=== PATIENT | male | born 1970 | race African-American/Black ===

== ENCOUNTER 2020-03-01 08:13 | Emergency (ER) | payer MEDICAID ==
[~2020-03-01] VITALS: Ht 177.8 cm; Wt 73.0 kg
[2020-03-01] MEDS ORDERED: EMTR1TAB13 PO (08:23)
[2020-03-01] MEDS ORDERED: LIDOCAINE HCL/PF 1% 10 MG/ML 5ML VIAL IJ ONE (08:45)
[2020-03-01] MEDS ORDERED: IBUPROFEN 600MG TABLET PO ONE (08:45)
[2020-03-01] MEDS ORDERED: BACITRACIN ZINC OINT UDPKT TOP ONE (08:45)
[2020-03-01] MEDS ORDERED: LIDOCAINE HCL 1% 20ML VIAL (Pyxis) INJ INFIL ONE (09:15)
[2020-03-01] MEDS ORDERED: CEFTRIAXONE SODIUM 1 G/VIAL IM ONE (09:15)
[2020-03-01 09:45] VITALS: BP 135/62
== END 2020-03-01 09:47 | disposition home or self-care (01) ==
LOC: ER 08:13
DX: L02.01 Cutaneous abscess of face (principal); B20 Human immunodeficiency virus [HIV] disease
CPT/HCPCS: 10060; 90471; 99283; J0696; J3490

== ENCOUNTER 2020-03-15 08:32 | Emergency (ER) | payer MEDICAID ==
[~2020-03-15] VITALS: Ht 177.8 cm; Wt 75.0 kg
[~2020-03-15 08:32] MED LIST: EMTR1TAB13 PO
[2020-03-15 08:34] VITALS: BP 112/69
[2020-03-15] MEDS ORDERED: PENICILLIN G BENZATHINE 2,400,000 UNITS/4ML SYR IM ONE (09:15)
[2020-03-15 10:04] LABS: COLOR URINE YELLOW (YELLOW); KETONES URINE NEGATIVE (NEGATIVE); LEUKOCYTE ESTERASE URINE NEGATIVE (NEGATIVE); NITRITE URINE NEGATIVE (NEGATIVE); OCCULT BLOOD URINE NEGATIVE (NEGATIVE); PROTEIN URINE NEGATIVE (NEGATIVE)
[2020-03-15 10:06] LABS: CLARITY URINE SL HAZY (CLEAR)
== END 2020-03-15 10:11 | disposition home or self-care (01) ==
LOC: ER 08:32
DX: A53.9 Syphilis, unspecified (principal)
CPT/HCPCS: 81003; 86592; 86593; 86780; 96372; 99283; J0561

== ENCOUNTER 2020-04-14 08:03 | Emergency (ER) | payer MEDICAID ==
[~2020-04-14] VITALS: Ht 177.8 cm; Wt 74.8 kg
[2020-04-14] MEDS ORDERED: CEFTRIAXONE SODIUM 250 MG/VIAL IM ONE (08:30)
[2020-04-14] MEDS ORDERED: AZITHROMYCIN 500 MG TABLET PO ONE (08:30)
[2020-04-14 08:42] LABS: CLARITY URINE CLOUDY (CLEAR); COLOR URINE YELLOW (YELLOW); KETONES URINE NEGATIVE (NEGATIVE); LEUKOCYTE ESTERASE URINE NEGATIVE (NEGATIVE); NITRITE URINE NEGATIVE (NEGATIVE); OCCULT BLOOD URINE 1+ (NEGATIVE); PH URINE 5.5 (4.5-8.0); PROTEIN URINE NEGATIVE (NEGATIVE); SPECIFIC GRAVITY URINE 1.023 (1.005-1.030)
[2020-04-14 09:22] VITALS: BP 107/61
== END 2020-04-14 09:33 | disposition home or self-care (01) ==
LOC: ER 08:03
DX: A64 Unspecified sexually transmitted disease (principal)
CPT/HCPCS: 81003; 86592; 86593; 86780; 96372; 99283; J0696

== ENCOUNTER 2021-06-10 08:29 | Emergency (ER) | payer MEDICAID ==
[~2021-06-10] VITALS: Ht 177.8 cm; Wt 75.0 kg
[2021-06-10] MEDS ORDERED: IBUPROFEN 600MG TABLET PO ONE (09:15)
[2021-06-10 09:23] LABS: CLARITY URINE CLEAR (CLEAR); COLOR URINE YELLOW (YELLOW); KETONES URINE NEGATIVE (NEGATIVE); LEUKOCYTE ESTERASE URINE NEGATIVE (NEGATIVE); NITRITE URINE NEGATIVE (NEGATIVE); OCCULT BLOOD URINE TRACE (NEGATIVE); PROTEIN URINE NEGATIVE (NEGATIVE); SPECIFIC GRAVITY URINE 1.021 (1.005-1.030); UROBILINOGEN URINE 0.2 E.U./dL (0.2-1.0)
[2021-06-10] MEDS ORDERED: CEFTRIAXONE SODIUM 500 MG/VIAL IM ONE (09:30)
[2021-06-10] MEDS ORDERED: LIDOCAINE HCL 1% 20ML VIAL (Pyxis) INJ INFIL ONE (09:30)
[2021-06-10] MEDS ORDERED: DOXYCYCLINE HYCLATE 100MG CAPSULE PO ONE (09:30)
[2021-06-10] MEDS ORDERED: DOXY100T2 MT (09:32)
[2021-06-10] MEDS ORDERED: IBUP-2029 MT (09:32)
[2021-06-10 10:10] VITALS: BP 117/73
== END 2021-06-10 10:12 | disposition home or self-care (01) ==
LOC: ER 09:24
DX: N34.2 Other urethritis (principal); R30.0 Dysuria
CPT/HCPCS: 81003; 96372; 99283; J0696; J3490

== ENCOUNTER 2021-11-21 08:07 | Emergency (ER) | payer MEDICAID ==
[~2021-11-21] VITALS: Ht 177.8 cm; Wt 75.0 kg
[~2021-11-21 08:07] MED LIST changes: +DOXY100T2 MT; +IBUP-2029 MT
[2021-11-21 08:15] VITALS: BP 123/69
[2021-11-21 10:34] LABS: CLARITY URINE CLEAR (CLEAR); COLOR URINE YELLOW (YELLOW); KETONES URINE NEGATIVE (NEGATIVE); LEUKOCYTE ESTERASE URINE NEGATIVE (NEGATIVE); NITRITE URINE NEGATIVE (NEGATIVE); OCCULT BLOOD URINE 1+ (NEGATIVE); PH URINE 5.5 (4.5-8.0); PROTEIN URINE NEGATIVE (NEGATIVE); SPECIFIC GRAVITY URINE 1.015 (1.005-1.030); UROBILINOGEN URINE 0.2 E.U./dL (0.2-1.0)
[2021-11-21] MEDS ORDERED: DOXYCYCLINE HYCLATE 100MG CAPSULE PO SCH (10:45)
[2021-11-21] MEDS ORDERED: CEFTRIAXONE SODIUM 500 MG/VIAL IM SCH (10:45)
[2021-11-21] MEDS ORDERED: DOXY100C5 MT (11:11)
[2021-11-21] MEDS ORDERED: IBUP-2029 MT (11:11)
== END 2021-11-21 11:42 | disposition home or self-care (01) ==
LOC: ER 08:07
DX: N34.2 Other urethritis (principal); B20 Human immunodeficiency virus [HIV] disease; Z11.3 Encounter for screening for infections with a predominantly sexual mode of transmission
CPT/HCPCS: 81003; 96372; 99283; J0696

== ENCOUNTER 2022-09-08 07:57 | Emergency (ER) | payer MEDICAID ==
[~2022-09-08] VITALS: Ht 177.8 cm; Wt 70.0 kg
[~2022-09-08 07:57] MED LIST changes: +DOXY100C5 MT
[2022-09-08] MEDS ORDERED: LIDOCAINE HCL 1% 20ML VIAL (Pyxis) INJ INFIL ONE (09:00)
[2022-09-08 09:45] VITALS: BP 137/79
[2022-09-08] MEDS ORDERED: IBUPROFEN 400MG TABLET PO ONE (09:45)
== END 2022-09-08 10:11 | disposition home or self-care (01) ==
LOC: ER 07:57
DX: L02.31 Cutaneous abscess of buttock (principal); Z79.899 Other long term (current) drug therapy
CPT/HCPCS: 10060; 99282; J3490